=== PATIENT | male | born 1985 ===

== ENCOUNTER 2018-06-25 15:10 | Emergency (ER) | payer MEDICAID ==
[2018-06-25 15:20] VITALS: BP 112/72; PULSE 90; RESP 16; TEMP 98.2; O2SAT 99
--- NOTE | 2018-06-25 15:37 | C.PDOC ---
History Of Present Illness 32 y/o male presents to the ER complaining of right ear pain and decreased hearing which has been present for the past 2 days. Patient states that he used Q tip in ear for some relief, however he thinks he injured his ear. He went to an ENT 30 minutes [employer]. He reports that he was told he needs a referral, however he does not have PMD. Patient also complaining of nasal congestion. He notes that he has history of seasonal allergies. Denies having fever,chills, headache, and dizziness. Time Seen by Provider: 06/25/18 15:20 Chief Complaint (Nursing): ENT Problem History Per: Patient History/Exam Limitations: None Onset/Duration Of Symptoms: Days Current Symptoms Are (Timing): Still Present Severity: Moderate Past Medical History Reviewed: Historical Data, Nursing Documentation, Vital Signs Vital Signs: Last Vital Signs Temp 98.2 F 06/25/18 15:18 Pulse 90 06/25/18 15:18 Resp 16 06/25/18 15:18 BP 112/72 06/25/18 15:18 Pulse Ox 99 06/25/18 15:18 - Medical History PMH: No Chronic Diseases Surgical History: No Surg Hx Family History: States: No Known Family Hx - Social History Hx Alcohol Use: No Hx Substance Use: No - Immunization History Hx Tetanus Toxoid Vaccination: No Hx Influenza Vaccination: No Hx Pneumococcal Vaccination: No Review Of Systems Except As Marked, All Systems Reviewed And Found Negative. Constitutional: Negative for: Fever, Chills ENT: Positive for: Ear Pain (right ear pain). Negative for: Ear Discharge Gastrointestinal: Negative for: Nausea, Vomiting Neurological: Negative for: Headache, Dizziness Physical Exam - Physical Exam Appears: Non-toxic, No Acute Distress, Other (comfortable, speaking in full sentences, ) Skin: Normal Color, Warm, Dry Head: Atraumatic, Normacephalic, Other (no tenderness to palpation over frontal and maxillary sinuses) Eye(s): bilateral: Normal Inspection Ear(s): Left: Normal, Right: TM Obscured By Wax, Other (abrasion to posterior aspect of canal) Nose: Normal, Other (no rhinorrhea) Oral Mucosa: Moist Neck: Supple Chest: Symmetrical Cardiovascular: Rhythm Regular Respiratory: Normal Breath Sounds, No Rales, No Rhonchi, No Wheezing Neurological/Psych: Oriented x3, Normal Speech ED Course And Treatment O2 Sat by Pulse Oximetry: 99 (RA) Pulse Ox Interpretation: Normal Progress Note: Patient treated with Motrin PO. On re-evaluation, patient feels better. Patient has been discharged with prescriptions for Debrox and Claritin. Patient has been instructed to follow up with PMD and ENT. Disposition Counseled Patient/Family Regarding: Diagnosis, Need For Followup, Rx Given - Disposition Referrals: Vinny Salazar MD [Staff Provider] - Disposition: HOME/ ROUTINE Disposition Time: 15:45 Condition: STABLE Additional Instructions: FOLLOW UP WITH YOUR DOCTOR IN 1-2 DAYS, AND WITH KEVIN WITHIN 1 WEEK USE MEDICATIONS DIRECTED RETURN TO ER IF SYMPTOMS WORSEN Prescriptions: Carbamide Peroxide [Debrox 15 Ml] 10 drop OT BID #1 bottle Ibuprofen [Motrin Tab] 600 mg PO Q6 PRN #30 tab PRN Reason: fever/pain Loratadine [Claritin] 10 mg PO DAILY PRN #30 tab PRN Reason: Itching / Pruritus Instructions: Ear Wax Impaction (DC) Forms: [employer] (Telugu) - Clinical Impression Clinical Impression: Excessive cerumen in right ear canal, Abrasion of ear canal, Rhinorrhea
== END 2018-06-25 15:53 | disposition home or self-care (01) ==
LOC: C.ER 15:10
DX: H61.21 Impacted cerumen, right ear (principal); S00.411A Abrasion of right ear, initial encounter; X58.XXXA Exposure to other specified factors, initial encounter; Y93.E8 Activity, other personal hygiene; J34.89 Other specified disorders of nose and nasal sinuses